=== PATIENT | male | born 1955 | race Caucasian/White ===

== ENCOUNTER 2018-06-09 10:40 | Emergency (ER) | payer OTHER | END 2018-06-09 10:53 | disposition left against medical advice (07) | LOC: UCEAST 10:40 | DX: Z53.21 Procedure and treatment not carried out due to patient leaving prior to being seen by health care provider (principal) ==

== ENCOUNTER 2019-04-15 16:24 | Emergency (ER) | payer MEDICAID, OTHER ==
--- OUTSIDE RECORDS SUMMARY | 2019-04-15 16:31 | XMS REPORT | Summary of Care ---
:1955 Author Organization [facility] Address [address] [place] [address] Care Team Providers Name Role Phone Issa Vazquez Primary Care Provider Reason for Referral Diagnostic Testing (Routine) Status Reason Specialty Diagnoses / Referred By Referred To Procedures Contact Contact Authorized Diagnoses Chronic obstructive pulmonary disease, unspecified COPD type (HCC) Issa Vazquez, Procedures PFT ROUTINE STUDIES [address] [place] [address] [place] [address] Reason for Visit Reason Comments Heartburn Back Pain Breathing Problem requesting pulmonary referral Encounter Details Date Type Department Care Team Description 04/05/2019 Office Visit [facility], Gastroesophageal reflux disease, esophagitis presence not specified (Primary Dx); Medicine MD Issa Hyperlipidemia, unspecified hyperlipidemia type; [address] Chronic obstructive pulmonary disease, unspecified COPD type ([facility]); [place] [address] [facility] A Prostate cancer screening; [phone] [place], [place] Panhypopituitarism ([facility]); [address] Hypotestosteronism [phone] Allergies No Known Allergiesdocumented as of this encounter (statuses as of 04/09/2019) Medications Medication Sig Dispensed Refills Start Date End Date Status Tadalafil (CIALIS) 10 Take 1 Tab by 18 Tab 3 02/01/2017 Active MG Oral Tab mouth DAILY NEEDED (ed). atorvastatin (LIPITOR) TAKE 1 TABLET BY 90 Tab 3 10/12/2018 Active 10 MG Oral Tab MOUTH EVERY DAY buPROPion (WELLBUTRIN TAKE 1 TABLET BY 90 Tab 3 10/12/2018 Active XL) 300 MG Oral TABLET MOUTH EVERY DAY SR 24 HR famotidine (PEPCID) 20 Take 1 Tab by 90 Tab 5 04/05/2019 Active MG Oral Tab mouth DAILY. Tadalafil 5 MG Oral Tab Take 1 Tab by 30 Tab 11 04/05/2019 Active mouth DAILY. 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 Hyperlipidemia 03/11/2018 Chronic bronchitis 07/16/2012 BMI 31.0-31.9,adult 03/15/2012 GERD (gastroesophageal reflux disease) 03/15/2012 Colon polyp 03/15/2012 Depression 02/14/2010 Chronic airway obstruction, not elsewhere classified 12/24/2006 documented as of this encounter (statuses as of 04/09/2019) Resolved Problems Problem Noted Date Resolved Date Hyperglycemia 03/11/2018 03/11/2018 documented as of this encounter (statuses as of 04/09/2019) Immunizations Name Administration Dates Next Due Hep A / Hep B Combined Vaccine (Adult) 02/10/2010 Influenza (IM) Preservative Free 12/14/2017, 02/05/2010, 02/22/2008 MMR VACCINE 10/26/2018 Meningococcal Polysaccharide (Groups A, 02/10/2010 C, Y And W-135) D) Polio - Inactivated Vaccine 02/14/2010 TYPHOID VACCINE 02/14/2010 YELLOW FEVER VACCINE 02/14/2010 ZOSTER (ZOSTAVAX) VACCINE 09/01/2016 documented as of this encounter Social History Tobacco Use Types Packs/Day Years Used Date Former Smoker Cigarettes 0.5 Quit: 05/02/1992 Smokeless Tobacco: Former User Chew Quit: 05/02/1990 Comments: patient was never an every day smoker, 1 per week Alcohol Use Drinks/Week oz/Week Comments No Sex Assigned at Date Recorded Not on file Job Start Date Occupation Industry Not on file Not on file Not on file Travel History Travel Start Travel End No recent travel history available. documented as of this encounter Last Filed Vital Signs Vital Sign Reading Time Taken Comments Blood Pressure 122/84 04/05/2019 8:43 AM EST Pulse 79 04/05/2019 8:43 AM EST Temperature 36.8 04/05/2019 8:43 AM EST C (98.3 F) Respiratory Rate - - Oxygen Saturation 99% 04/05/2019 8:43 AM EST Inhaled Oxygen Concentration - - Weight 92.1 kg (203 lb) 04/05/2019 8:43 AM EST Height 177.8 cm (5' 10") 04/05/2019 8:43 AM EST Body Mass Index 29.13 04/05/2019 8:43 AM EST documented in this encounter Progress Notes Issa Vazquez MD - 04/05/2019 8:40 AM EST PATIENT: Julien Burkett : 1955 DATE OF SERVICE: 04/05/2019 CHIEF COMPLAINT: Chief Complaint Patient presents with Heartburn Back Pain Breathing Problem requesting pulmonary referral Subjective HISTORY OF PRESENT ILLNESS: Julien Burkett is a 63-y.o. male. HPI Harrison is concerned that he may have COPD. He was exposed to a lot of fumes and dust in his career. His exercise tolerance is quite good. Patient denies any exertional chest pain, dyspnea, palpitations, syncope, orthopnea, edema or paroxysmal nocturnal dyspnea. Past Medical History: Diagnosis Date Depression GERD (gastroesophageal reflux disease) Family History Problem Relation Age of Onset Hypertension Mother Hypertension Father Heart Disease Father Current Outpatient Medications Medication Sig atorvastatin (LIPITOR) 10 MG Oral Tab TAKE 1 TABLET BY MOUTH EVERY DAY buPROPion (WELLBUTRIN XL) 300 MG Oral TABLET SR 24 HR TAKE 1 TABLET BY MOUTH EVERY DAY famotidine (PEPCID) 20 MG Oral Tab Take 1 Tab by mouth DAILY. Tadalafil (CIALIS) 10 MG Oral Tab Take 1 Tab by mouth DAILY NEEDED (ed ). Tadalafil 5 MG Oral Tab Take 1 Tab by mouth DAILY. No current facility-administered medications for this visit. No Known Allergies Social History Socioeconomic History Marital status: Single Spouse name: Not on file Number of children: Not on file Years of education: Not on file Highest education level: Not on file Occupational History Not on file Social Needs Financial resource strain: Not on file Food insecurity Worry: Not on file Inability: Not on file Transportation needs Medical: Not on file Non-medical: Not on file Tobacco Use Smoking status: Former Smoker Packs/day: 0.50 Types: Cigarettes Last attempt to quit: 05/02/1992 Years since quittin.9 Smokeless tobacco: Former User Types: Chew Quit date: 05/02/1990 Tobacco comment: patient was never an every day smoker, 1 per week Substance and Sexual Activity Alcohol use: No Drug use: No Sexual activity: Not on file Lifestyle Physical activity Days per week: Not on file Minutes per session: Not on file Stress: Not on file Relationships Social connections Talks on phone: Not on file Gets together: Not on file Attends zoroastrian service: Not on file Active member of club or organization: Not on file Attends meetings of clubs or organizations: Not on file Relationship status: Not on file Intimate partner violence Fear of current or ex partner: Not on file Emotionally abused: Not on file Physically abused: Not on file Forced sexual activity: Not on file Other Topics Concern Back Care Not Asked Bike Helmet Not Asked Blood Transfusions Not Asked Caffeine Concern Not Asked Exercise Not Asked Hobby Hazards Not Asked International Travel Not Asked Service Not Asked Occupational Exposure Not Asked Seat Belt Not Asked Self-Exams Not Asked Sleep Concern Not Asked Special Diet Not Asked Stress Concern Not Asked Weight Concern Not Asked Social History Narrative 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 Objective PHYSICAL EXAM: VITALS: BP 122/84 (BP Location: Left arm, Patient Position: Sitting) | Pulse 79 | Temp 98.3 F(36.8 C) (Tympanic) | Ht 5' 10" (1.778 m) | Wt 203 lb (92.1 kg) | SpO2 99% | BMI 29.13 kg/m Body mass index is 29.13 kg/m . Physical Exam Alert and oriented in no distress Normal mood and affect. VITAL SIGNS: As noted SKIN: Warm and dry with good turgor.No visible rashes. NECK: Supple with no obvious masses Carotid pulses are palpated Thyroid does not appear to be enlarged or tender LUNGS: Clear to auscultation. Respirations are unlabored CARDIO: Heart rhythm is regular. No murmurs noted Pedal pulses are palpated and intact. No peripheral edema. ABDOMEN: Soft and nontender. No masses palpated. No hepatosplenomegaly NEURO: No focal weakness. No facial nerve weakness Nurse/Clinical Support on 03/30/2019 Component Date Value Ref Range Status Lot Number 03/30/2019 [id number] In process Site 03/30/2019 right forearm In process Expiration Date 03/30/2019 06/20/21 In process ASSESSMENT / IMPRESSION: ICD-9-CM ICD-10-CM 1. Gastroesophageal reflux disease, esophagitis presence not specified 530.81 K21.9 2. Hyperlipidemia, unspecified hyperlipidemia type 272.4 E78.5 COMPREHENSIVE METABOLIC PANEL LIPID PROFILE 3. Chronic obstructive pulmonary disease, unspecified COPD type (HCC) 496 J44.9 PFT ROUTINE STUDIES 4. Prostate cancer screening V76.44 Z12.5 PSA, TOTAL (FOLLOW-UP DIAGNOSTIC) 5. 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 Hypotestosteronism 259.9 E34.9 Plan Schedule PFT. Labs ordered to screen for prostate cancer, lipids. Check testosterone level. Author: Issa Vazquez MD 04/09/2019 10:22 documented in this encounter Plan of Treatment Name Type Priority Associated Diagnoses Order Schedule COMPREHENSIVE Lab Routine Hyperlipidemia, unspecified Expected: METABOLIC PANEL hyperlipidemia type 04/05/2019 (Approximate), Expires: 04/05/2020 LIPID PROFILE Lab Routine Hyperlipidemia, unspecified Expected: hyperlipidemia type 04/05/2019 (Approximate), Expires: 04/05/2020 PSA, TOTAL (FOLLOW-UP Lab Routine Prostate cancer screening Expected: DIAGNOSTIC) 04/05/2019 (Approximate), Expires: 04/05/2020 PFT ROUTINE STUDIES Pulmonary Routine Chronic obstructive Expected: pulmonary disease, 04/05/2019, unspecified COPD type (HCC) Expires: 10/02/2019 CBC WITH DIFFERENTIAL Lab Routine Panhypopituitarism (HCC) Expected: 04/05/2019 (Approximate), Expires: 10/02/2019 TESTOSTERONE FREE & Lab Routine Panhypopituitarism (HCC) Expected: TOTAL 04/05/2019 (Approximate), Expires: 10/02/2019 Health Maintenance Due Date Last Done Comments PNEUMOCOCCAL 0-64 YRS (1 of 1962 1 - PPSV23) DTaP/Tdap/Td Vaccines (1 - 08/29/1967 Tdap) ZOSTER IMMUNIZATION SERIES 10/27/2016 09/01/2016 (2 of 3) DIABETES SCREENING 09/15/2018 09/15/2017, 02/01/2017, 04/07/2016, Additional history exists INFLUENZA VACCINE (#1) 2018 12/14/2017, 02/05/2010, 02/22/2008 LIPID DISORDER SCREENING 10/13/2023 10/12/2018, 03/11/2018, 09/15/2017, Additional history exists Colonoscopy 11/23/2026 11/23/2016, 11/23/2016, 06/28/2015, Additional history exists HEPATITIS A IMMUNIZATION Aged Out 02/10/2010 No longer eligible SERIES based on patient's age to complete this topic MENINGOCOCCAL VACCINE IMM Aged Out 02/10/2010 No longer eligible based on patient's age to complete this topic HEPATITIS C SCREENING Completed 03/03/2017, 07/14/2012, 11/02/2011 HPV IMMUNIZATION SERIES Aged Out No longer eligible based on patient's age to complete this topic documented as of this encounter Goals Goal Patient Goal Associated Recent Patient-Stated? Author Type Problems Progress Depression Depression No gissell Vazquez (PHQ-9) MD Issa total score < 5 Note: This is an individualized treatment (depression) goal for Julien Burkett: Displayed above is your goal for a depression screening (PHQ-9) score that would indicate good control of your depression. Keep a regular sleep schedule Lifestyle No Issa Vazquez MD Note: This is an individualized lifestyle goal for Julien Burkett: Please maintain a regular sleep schedule. This may help with some symptoms of depression. Keep immunizations current Lifestyle No Issa Vazquez MD Note: This is an individualized lifestyle goal for Juline Burkett: Please be sure to keep up-to-date on recommended immunizations. For example, this would include a yearly influenza vaccine. Immunization status can be seen by looking at the Health Maintenance sections of your e[facility], Plan of Care, and any After Visit Summaries. Take all prescribed medications as Self-management No Issa Vazquez MD directed Note: This is an individualized self-management goal for Julien Adair Estradaalisha: Please take all prescribed medications as directed. 1. Do not skip doses. If you cannot afford your medications, talk with your doctor. 2. Use a pill reminder system such as a pill box if needed. Your pharmacist can help you with this. 3. Contact your Pharmacy 5 days before your medication runs out. If you cannot take your medications for any reasons, talk with your doctor. 4. Please bring all of your medication bottles and inhalers (or a list of all your medications/inhalers) with you to every visit. Potential barriers to meeting all of your care plan goals will continue to be addressed on an ongoing basis. documented as of this encounter Results Not on filedocumented in this encounter Visit Diagnoses Diagnosis Gastroesophageal reflux disease, esophagitis presence not specified Hyperlipidemia, unspecified hyperlipidemia type Chronic obstructive pulmonary disease, unspecified COPD type (HCC) Prostate cancer screening Special screening for malignant neoplasm of prostate Panhypopituitarism (HCC) Panhypopituitarism Hypotestosteronism Other testicular hypofunction documented in this encounter Guarantor Name Account Type Relation to Date of Phone Billing Patient Address Julien Burkett Personal/Family 1955 [address] [phone] [place], [place] (Work) [address] documented as of this encounter
--- OUTSIDE RECORDS SUMMARY | 2019-04-15 16:31 | XMS REPORT | Summary of Care ---
:1955 Author Organization [facility] Address [address] [facility] [place] [address] Care Team Providers Name Role Phone Issa Vazquez Primary Care Provider Reason for Visit Reason Comments Establish Care Referred for Penile Warts Encounter Details Date Type Department Care Team Description 03/01/2019 Office Visit [facility]rig[facility], Penile wart ( Primary Disease MD Jamila Dx) 1 [facility] [address] [facility] [place] [address] [place] [address] [phone] Allergies No Known Allergiesdocumented as of this encounter (statuses as of 03/01/2019) Medications Medication Sig Dispensed Refills Start Date [...] TABLET MOUTH EVERY DAY SR 24 HR documented as of this encounter (statuses as of 03/01/2019) Active Problems Problem Noted Date 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 Hyperlipidemia 03/11/2018 Chronic bronchitis 07/16/2012 BMI 31.0-31.9,adult 03/15/2012 GERD (gastroesophageal reflux disease) 03/15/2012 Colon polyp 03/15/2012 Depression 02/14/2010 Chronic airway obstruction, not elsewhere classified 12/24/2006 documented as of this encounter (statuses as of 03/01/2019) Resolved Problems Problem Noted Date Resolved Date Hyperglycemia 03/11/2018 03/11/2018 documented as of this encounter (statuses as of 03/01/2019) Immunizations Name Administration Dates Next Due Influenza (IM) Preservative Free 02/05/2010, 02/22/2008 MMR VACCINE 10/26/2018 Polio - Inactivated Vaccine 02/14/2010 TYPHOID VACCINE [...] Sign Reading Time Taken Comments Blood Pressure 120/84 03/01/2019 1:39 PM EST Pulse 101 03/01/2019 1:39 PM EST Temperature 37.3 03/01/2019 1:39 PM EST C (99.2 F) Respiratory Rate - - Oxygen Saturation 96% 03/01/2019 1:39 PM EST Inhaled Oxygen Concentration - - Weight 92.1 kg (203 lb) 03/01/2019 1:39 PM EST Height 177.8 cm (5' 10") 03/01/2019 1:39 PM EST Body Mass Index 29.13 03/01/2019 1:39 PM EST documented in this encounter Progress Notes Hill-Jamila Rodriguez MD - 03/01/2019 1:20 PM EST PATIENT: Julien Burkett : 1955 DATE OF SERVICE: 03/01/2019 REFERRING PRACTITIONER: Inocente Madrid PRIMARY CARE PROVIDER: Issa Vazquez CHIEF COMPLAINT: Chief Complaint Patient presents with Establish Care Referred for Penile Warts Subjective HISTORY OF PRESENT ILLNESS: Julien Burkett is a 63-y.o. male who presents for a consultation. Patient noticed a verrucous lesion in his penis over a year ago. He had it excised and pathology report diagnosed it as condylomata acuminata. Patient states this lesion did not recur, but he had other lesions in groin area, which were managed with liquid nitrogen by Dermatology. These were never biopsied. Last treatment was in April of this year. Patient now has a new sexual partner and was concerned about which type of HPV he had. Saw Urology who were unable to provide an answer as the biopsy was never sent for further identification. Patient was told "he could have a blood test". Patient has had no further lesions, no swelling of inguinal nodes, no rash or genital discharge. Past Medical History: Diagnosis Date Depression GERD (gastroesophageal reflux disease) Past Surgical History: Procedure Laterality Date COLONOSCOPY 02/12/2010 Procedure:COLONOSCOPY; Surgeon:ADRIAN BELTRAN; Location:[facility]; Laterality:N/A COLONOSCOPY N/A 11/23/2016 Procedure: COLONOSCOPY; Surgeon: Juan Hudson MD; Location: [facility] OR EGD 05/03/2012 Procedure: ENDOSCOPY UPPER GI; Surgeon: Ed Muhammad MD; Location: [facility]; Laterality: N/A; CA REMOVE TONSILS/ADENOIDS,<12 Y/O Family History Problem Relation Age of Onset Hypertension Mother Hypertension Father Heart Disease Father Current Outpatient Medications Medication Sig atorvastatin (LIPITOR) 10 MG Oral Tab TAKE 1 TABLET BY MOUTH EVERY DAY buPROPion (WELLBUTRIN XL) 300 MG Oral TABLET SR 24 HR TAKE 1 TABLET BY MOUTH EVERY DAY Tadalafil (CIALIS) 10 MG Oral Tab Take 1 Tab by mouth DAILY NEEDED (ed ). No current facility-administered medications for this visit. No Known Allergies Social History Socioeconomic History Marital status: Single Spouse name: Not on file Number of children: Not on file Years of education: Not on file Highest education level: Not on file Occupational History Not on file Social Needs Financial resource strain: Not on file Food insecurity: Worry: Not on file Inability: Not on file Transportation needs: Medical: Not on file Non-medical: Not on file Tobacco Use Smoking status: Former Smoker Packs/day: 0.50 Types: Cigarettes Last attempt to quit: 05/02/1992 Years since quittin.8 Smokeless tobacco: Former User Types: Chew Quit date: 05/02/1990 Tobacco comment: patient was never an every day smoker, 1 per week Substance and Sexual Activity Alcohol use: No Drug use: No Sexual activity: Not on file Lifestyle Physical activity: Days per week: Not on file Minutes per session: Not on file Stress: Not on file Relationships Social connections: Talks on phone: Not on file Gets together: Not on file Attends taoist service: Not on file Active member of club or organization: Not on file Attends meetings of clubs or organizations: Not on file Relationship status: Not on file Intimate partner violence: Fear of current or ex partner: Not [...] History Narrative 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 Objective PHYSICAL EXAMINATION: VITALS: BP 120/84 | Pulse 101 | Temp 99.2 F (37.3 C) | Ht 5' 10" ( 1.778 m) | Wt 203 lb (92.1 kg) | SpO2 96% | BMI 29.13 kg/m GENERAL: alert, oriented, no acute distress. SKIN: no rash or abnormalities. HEENT: neck without nodes, throat normal without erythema or exudate and no scleral icterus . NECK: no mass, no adenopathy, no thyromegaly, supple. LUNGS: clear to auscultation bilaterally. HEART: regular rhythm, no gallops, no rubs. ABDOMEN: soft, nondistended, nontender. EXTREMITIES: extremities normal, atraumatic, no cyanosis or edema. - no lesions or rash in penis or scrotum, no lymphadenopathy NEUROLOGICAL: alert, oriented times three, affect appropriate, no involuntary movements. IMPRESSION: ICD-9-CM ICD-10-CM 1. Penile wart 078.11 A63.0 -Discussed case with patient. -There is no FDA- approved blood or serologic test to diagnose or characterize HPV infection. -HPV testing of sites other than cervical region is not routinely done in the [place]. -At this time the only recommendation is to continue monitoring for recurrence of lesions. If these reappear then another biopsy and maybe testing for HPV could be attempted, although the chance of such test being unavailable is high. -Reassured patient that for the most part the wart- producing strains of HPV are not oncogenic, and that the oncogenic strains tend to not cause malignancies. -Discussed surveillance and safe sexual practices. -Will reassess if new lesions appear. -More than 50% of the physician/patient and or family encounter was spent with counseling and coordination of care. Total visit time involved was 45 minutes. Plan PLAN: No laboratory testing available. Surveillance for reoccurrence of lesions Follow up: Schedule follow-up here as needed if symptoms worsen. Author: Jamila Perez MD 03/01/2019 19:28 documented in this encounter Plan of Treatment Health Maintenance Due Date Last Done Comments PNEUMOCOCCAL 0-64 YRS (1 of 1962 1 - PPSV23) DIABETES SCREENING 09/15/2018 09/15/2017, 02/01/2017, 04/07/2016, Additional history exists DEPRESSION SCREENING 11/15/2018 11/15/2017 INFLUENZA VACCINE (#1) 2018 02/05/2010, 02/22/2008 ZOSTER IMMUNIZATION SERIES 03/10/2019 09/01/2016 Postponed from (2 of 3) 10/27/2016 (Vaccine not available) LIPID DISORDER SCREENING 10/13/2023 10/12/2018, 03/11/2018, 09/15/2017, Additional history exists Colonoscopy 11/23/2026 11/23/2016, 11/23/2016, 06/28/2015, Additional history exists HEPATITIS C SCREENING Completed 03/03/2017, 07/14/2012, 11/02/2011 HPV IMMUNIZATION SERIES Aged Out No longer eligible based on patient's age to complete this topic MENINGOCOCCAL VACCINE IMM Aged Out No longer eligible based on [...] individualized lifestyle goal for Julien Burkett: Please be sure to keep up-to-date on recommended immunizations. For example, this would include a yearly influenza vaccine. Immunization status can be seen by looking at the Health Maintenance sections of your [facility], Plan of Care, and any After Visit Summaries. Take all prescribed medications as Self-management No Issa Vazquez MD directed Note: This is an individualized self-management goal for Julien Burkett: Please take all prescribed medications as directed. [...] filedocumented in this encounter Visit Diagnoses Diagnosis Penile wart - Primary Other specified viral warts documented in this encounter Guarantor Name Account Type Relation to Date of Phone Billing Patient Address Julien Burkett Personal/Family 1955 [phone] [phone] [place], [place] (Work) [address] documented as of this encounter
[2019-04-15 16:38] VITALS: BP 128/78
--- NOTE | 2019-04-15 16:54 | UC ---
Upper Extremity HPI - HPI Summary HPI Summary: Injured R thumb when "jammed it" today skiing. has immediate pain and black and blue. no decreased ROM - but painful - History of Current Complaint Chief Complaint: UCUpperExtremity Stated Complaint: THUMB INJURY Time Seen by Provider: 04/15/19 16:31 Hx Obtained From: Patient Onset/Duration: Sudden Onset Severity Initially: Severe Severity Currently: Moderate Pain Intensity: 7 Location Of Pain: Is Discrete @ - base R thumb Character: Throbbing, Stiffness Aggravating Factor(s): Movement Alleviating Factor(s): Ice, Rest Associated Signs And Symptoms: Positive: Swelling, Bruising - Allergies/Home Medications Allergies/Adverse Reactions: Allergies Allergy/AdvReac Type Severity Reaction Status Date / Time No Known Allergies Allergy Verified 04/15/19 16:38 Home Medications: Home Medications Atorvastatin* [Lipitor 10 MG*] 10 mg PO DAILY 04/15/19 [History Confirmed ] PMH/Surg Hx/FS Hx/Imm Hx Previously Healthy: Yes Endocrine History: Dyslipidemia - Social History Occupation: Retired Lives: Alone Alcohol Use: None Substance Use Type: None Smoking Status (MU): Never Smoked Tobacco Review of Systems All Other Systems Reviewed And Are Negative: Yes Constitutional: Positive: Negative Skin: Positive: Bruising - base R thumb Respiratory: Positive: Negative Cardiovascular: Positive: Negative Motor: Negative: Decreased ROM Neurovascular: Positive: Negative Musculoskeletal: Positive: Other: - pain R thumb Neurological: Positive: Negative. Negative: Numbness Psychological: Positive: Negative Is Patient Immunocompromised?: No Physical Exam Triage Information Reviewed: Yes Appearance: Well-Appearing, No Pain Distress, Well-Nourished Vital Signs: Initial Vital Signs Temp 99.3 F 04/15/19 16:32 Pulse 75 04/15/19 16:32 Resp 18 04/15/19 16:32 BP 128/78 04/15/19 16:32 Pulse Ox 97 04/15/19 16:32 Respiratory Exam: Normal Respiratory: Positive: Lungs clear Cardiovascular Exam: Normal Cardiovascular: Positive: RRR Musculoskeletal: Positive: Strength Intact, ROM Intact - with pain, Other: - minor swelling and ecchymosis R thumb - no gross deformity Neurological Exam: Normal Psychological Exam: Normal Skin Exam: Normal Diagnostics - Radiology No standard instances Radiology Interpretation Completed By: Radiologist - No fracture Upper Extremity Course/Dx - Differential Dx/Diagnosis Differential Diagnosis/HQI/PQRI: Contusion, Fracture (Closed), Strain, Sprain Provider Diagnosis: Sprain of right thumb Discharge ED - Sign-Out/Discharge Documenting (check all that apply): Patient Departure All imaging exams completed and their final reports reviewed: Yes - Discharge Plan Condition: Good Disposition: HOME Patient Education Materials: Skier's Thumb (ED) Referrals: No Primary Care Phys,NOPCP [Primary Care Provider] - Ton Wright MD [Medical Doctor] - 2 Days (for recheck) Additional Instructions: elevate hand and apply cold packs ibuprofen 600mg every 6 hours as needed for pain (take with food) use splint for 1 week - Billing Disposition and Condition Condition: GOOD Disposition: Home
== END 2019-04-15 17:25 | disposition home or self-care (01) ==
LOC: UCEAST 16:24
DX: S63.601A Unspecified sprain of right thumb, initial encounter (principal); E78.5 Hyperlipidemia, unspecified; W23.0XXA Caught, crushed, jammed, or pinched between moving objects, initial encounter; Y93.23 Activity, snow (alpine) (downhill) skiing, snowboarding, sledding, tobogganing and snow tubing; Y92.9 Unspecified place or not applicable; Z79.899 Other long term (current) drug therapy
CPT/HCPCS: 99212; G0463